=== PATIENT | female | born 1950 | race Caucasian/White ===

== ENCOUNTER → 2016-11-20 | Outpatient (CLI) | payer OTHER ==
--- NOTE | 2016-11-20 19:18 | DX ---
Lumbar spine 2 views Indication: Post fusion, 6-month follow up. Comparison: August 19, 2016. Findings: Posterior L4-L5 fusion instrumentation remaining unchanged. Alignment is normal. Rest of th e spine is unchanged. Impression: No changes since 6 months ago.
== END ==
LOC: EDSTATUS 12:30 → FIMAGING 18:27
DX: Z09 Encounter for follow-up examination after completed treatment for conditions other than malignant neoplasm (principal); Z98.1 Arthrodesis status

== ENCOUNTER → 2016-12-17 | Outpatient (CLI) | payer OTHER ==
[~2016-12-17] MED LIST: GADOBUTROL 10 ML VIAL IVP ONE
== END ==
LOC: FIMAGING 12:41
DX: M54.6 Pain in thoracic spine (principal); M40.204 Unspecified kyphosis, thoracic region; M51.14 Intervertebral disc disorders with radiculopathy, thoracic region; M48.06 Spinal stenosis, lumbar region; Z98.1 Arthrodesis status
CPT/HCPCS: 72148; 72157; A9585

== ENCOUNTER → 2017-02-08 | Outpatient (CLI) | payer OTHER | LOC: FIMAGING 12:50 | DX: Z12.31 Encounter for screening mammogram for malignant neoplasm of breast (principal); Z80.3 Family history of malignant neoplasm of breast | CPT/HCPCS: G0202 ==

== ENCOUNTER → 2017-05-11 | Outpatient (CLI) | payer OTHER | LOC: FIMAGING 11:32 | PROVIDERS: ATTEND Physician Assistant | DX: Z09 Encounter for follow-up examination after completed treatment for conditions other than malignant neoplasm (principal); Z98.1 Arthrodesis status ==

== ENCOUNTER → 2017-06-11 | Outpatient (CLI) | payer OTHER | LOC: FIMAGING 18:35 | PROVIDERS: ATTEND Nurse Practitioner | DX: M51.85 Other intervertebral disc disorders, thoracolumbar region (principal); M51.86 Other intervertebral disc disorders, lumbar region; Z98.1 Arthrodesis status | CPT/HCPCS: 72157; 72158; A9585 ==

== ENCOUNTER → 2017-06-27 | Outpatient (CLI) | payer OTHER | LOC: BMCIMAGING 15:19 | PROVIDERS: ATTEND Internal Medicine Rheumatology | DX: M16.12 Unilateral primary osteoarthritis, left hip (principal) | CPT/HCPCS: 86812-90 ==

== ENCOUNTER → 2017-07-04 | Outpatient (CLI) | payer OTHER | LOC: FIMAGING 18:05 | PROVIDERS: ATTEND Physical Medicine & Rehabilitation Neuromuscular Medicine | DX: M54.16 Radiculopathy, lumbar region (principal); Z98.1 Arthrodesis status ==

== ENCOUNTER → 2017-12-25 | Outpatient (CLI) | payer OTHER | LOC: BHFA 13:15 | PROVIDERS: ATTEND Internal Medicine Cardiovascular Disease | DX: R06.09 Other forms of dyspnea (principal) ==

== ENCOUNTER → 2018-01-04 | Outpatient (CLI) | payer OTHER | LOC: BHFA 16:00 | PROVIDERS: ATTEND Internal Medicine Cardiovascular Disease | DX: R00.2 Palpitations (principal); R06.02 Shortness of breath; I47.1 Supraventricular tachycardia ==

== ENCOUNTER → 2018-02-13 | Outpatient (CLI) | payer OTHER | LOC: FIMAGING 16:00 | PROVIDERS: ATTEND Family Medicine | DX: Z12.31 Encounter for screening mammogram for malignant neoplasm of breast (principal); Z80.3 Family history of malignant neoplasm of breast ==

== ENCOUNTER → 2018-05-28 | Outpatient (CLI) | payer OTHER | DX: Z13.820 Encounter for screening for osteoporosis (principal); M85.89 Other specified disorders of bone density and structure, multiple sites; M40.204 Unspecified kyphosis, thoracic region; Z78.0 Asymptomatic menopausal state; Z79.890 Hormone replacement therapy ==

== ENCOUNTER → 2018-12-10 | Outpatient (CLI) | payer OTHER | LOC: FLAB 14:52 | PROVIDERS: ATTEND Physician Assistant | DX: Z98.1 Arthrodesis status (principal) | CPT/HCPCS: 82607-90 ==

== ENCOUNTER → 2018-12-31 | Outpatient (CLI) | payer OTHER | LOC: FIMAGING 18:14 | PROVIDERS: ATTEND Physician Assistant | DX: M54.6 Pain in thoracic spine (principal); M54.16 Radiculopathy, lumbar region; M48.07 Spinal stenosis, lumbosacral region; M51.36 Other intervertebral disc degeneration, lumbar region; Z98.1 Arthrodesis status ==

== ENCOUNTER → 2019-02-27 | Outpatient (CLI) | payer OTHER | LOC: FIMAGING 14:33 | PROVIDERS: ATTEND Family Medicine | DX: Z12.31 Encounter for screening mammogram for malignant neoplasm of breast (principal); Z80.3 Family history of malignant neoplasm of breast ==

== ENCOUNTER 2019-04-06 15:07 | Emergency (ER) | payer OTHER ==
[2019-04-06] MEDS ORDERED: NS 1,000 ML IV ONE (15:27)
--- NOTE | 2019-04-06 15:30 | EDPHY ---
H & P Stated Complaint: dx uti hematuria/rx macrobid/yesterday now with glank pain/ chills body ache Time Seen by Provider: 04/06/19 15:18 HPI/ROS: CHIEF COMPLAINT: Diagnosed with UTI yesterday, chills, worsening dysuria, nausea HISTORY OF PRESENT ILLNESS: The patient was diagnosed with urinary tract infection yesterday with antecedent symptoms of frequency and dysuria. She was noted to have high blood and trace leuks on urine dipstick and was started on Macrobid. The patient tells me her symptoms have worsened today. She denies any flank pain. She denies fever but does report nausea and flu-like symptoms. The patient denies cough or congestion. She denies any acute back pain. She does have a history of chronic back pain from prior spinal surgery. Patient reports her symptoms are moderate in nature REVIEW OF SYSTEMS: A comprehensive 10 point review of systems is otherwise negative aside from elements mentioned in the history of present illness. Source: Patient Exam Limitations: No limitations - Personal History Current Tetanus Diphtheria and Acellular Pertussis (TDAP): Unsure - Medical/Surgical History Hx Asthma: No Hx Chronic Respiratory Disease: No Hx Diabetes: No Hx Cardiac Disease: Yes Hx Renal Disease: No Hx Cirrhosis: No Hx Alcoholism: No Hx HIV/AIDS: No Hx Splenectomy or Spleen Trauma: No Other PMH: SVT, head injury (2008), Neuroma, Hypothyroid - Social History Smoking Status: Never smoked - Physical Exam Exam: General Appearance: Alert, no distress Eyes: Pupils equal and round no pallor or injection ENT, Mouth: Mucous membranes moist Respiratory: There are no retractions, lungs are clear to auscultation Cardiovascular: Regular rate and rhythm Gastrointestinal: Minimal suprapubic tenderness, no CVA tenderness Neurological: 5/5 strength noted all 4 extremities Skin: Warm and dry, no rashes Musculoskeletal: Neck is supple nontender Extremities: symmetrical, full range of motion Constitutional: Initial Vital Signs Temperature (C) 36.9 C 04/06/19 15:13 Heart Rate 90 04/06/19 15:13 Respiratory Rate 18 04/06/19 15:13 Blood Pressure 120/68 04/06/19 15:13 O2 Sat (%) 93 04/06/19 15:13 O2 Delivery Mode Room Air Allergies/Adverse Reactions: aspirin Allergy (Intermediate, Verified 04/06/19 15:09) nausea doxycycline Allergy (Intermediate, Verified 04/06/19 15:09) colon fissures epinephrine Allergy (Intermediate, Verified 04/06/19 15:09) heart races zolpidem tartrate [From Ambien] Allergy (Intermediate, Verified 04/06/19 15:09) "made crazy"- ended up in hospital ciprofloxacin [From Cipro] Allergy (Verified 04/06/19 15:09) "felt like her head was going to fall off" diphenhydramine HCl [From Benadryl] Allergy (Verified 04/06/19 15:09) heart races oxycodone terephthalate [From Percodan] Allergy (Verified 04/06/19 15:09) convulsions tetracycline [Tetracycline] Allergy (Verified 04/06/19 15:09) colon fissures trazodone Allergy (Verified 04/06/19 15:09) "flat personality, became addicted" Home Medications: Medication Instructions Recorded Eszopiclone [Lunesta] 0.5 mg PO HS PRN 12/22/15 Herbals/Supplements -Info Only 1 ea PO DAILY 12/22/15 Testosterone. 1 mg TP TUTHSA@09 12/22/15 Thyroid [Lloyd Thyroid 60 MG (*)] 60 mg PO DAILY06 12/22/15 Estradiol [Climara 0.05 MG (*)] 0.05 mg TP MO@0900 04/11/16 Progesterone (Compounded) 25 mg PO DAILY 04/11/16 Estradiol [Vivelle-Dot 0.025MG (*)] 0.025 mg TD KUMAR 05/29/16 Estradiol [VAGIFEM] 25 mcg VG KUMAR@2100 06/01/16 Methocarbamol [Robaxin 750 mg (*)] 750 mg PO QID PRN #40 tab 06/01/16 Macrobid 04/06/19 Medical Decision Making - Diagnostics Imaging Results: Imaging Impressions Abdomen CT 04/06/19 15:57 Impression: 1. No evidence for diverticulosis or diverticulitis. 2. No CT evidence of appendicitis, abscess or bowel obstruction. 3. Transverse orientation of the cecum with the tip at the level of the umbilicus. 4. Mild bladder wall thickening. This is nonspecific but can be seen with cystitis.. Findings discussed with Ariel Burton M.D. at 16:58 hour, 04/06/2019. ED Course/Re-evaluation: Patient presents the ED with subjective fever, chills and nausea in the setting of a recent urinary tract infection diagnosis. The patient was diagnosed with a UTI yesterday by dipstick test which demonstrated large blood and trace leukocyte esterase. The patient was having some dysuria at that point time and was started on Macrobid. The patient felt worse today prompting her visit to the emergency department. She denies any cough or congestion. She denies additional complaints. She does complain of mild lower abdominal discomfort. Patient was noted to have minimal tenderness on exam. She had no clinical evidence of pyelonephritis. Urinalysis today demonstrates no pyuria or hematuria. Patient was noted to have mild leukocytosis. Given the uncertainty of her initial diagnosis I did obtain a CT scan of the abdomen pelvis to evaluate for other processes such as appendicitis or diverticulitis. CT scan of the abdomen pelvis demonstrates no evidence of obvious pathology. The patient received IV fluids in the emergency department. She is nontoxic well-appearing has a benign abdominal exam. At this point time I do feel she can be discharged home. Given the possibility of a partially treated urinary tract infection I have encouraged her to continue to her full course of Macrobid. Patient is advised to return to the emergency department for markedly worsening symptoms or other concerns. Patient should take Tylenol and ibuprofen as needed for symptom management. Differential Diagnosis: Differential diagnosis considered includes cystitis, pyelonephritis, viral enteritis, metabolic abnormality, appendicitis, diverticulitis - Data Points Laboratory Results: Laboratory Results 04/06/19 15:36 04/06/19 15:36 04/06/19 04/06/19 04/06/19 15:36 15:36 15:15 WBC 14.15 10^3/uL H 10^3/uL (3.80-9.50) RBC 4.47 10^6/uL 10^6/uL (4.18-5.33) Hgb 13.8 g/dL g/dL (12.6-16.3) Hct 41.0 % % (38.0-47.0) MCV 91.7 fL fL (81.5-99.8) MCH 30.9 pg pg (27.9-34.1) MCHC 33.7 g/dL g/dL (32.4-36.7) RDW 12.9 % % (11.5-15.2) Plt Count 290 10^3/uL 10^3/uL (150-400) MPV 8.6 fL L fL (8.7-11.7) Neut % (Auto) 94.1 % H % (39.3-74.2) Lymph % (Auto) 2.0 % L % (15.0-45.0) Cecil % (Auto) 3.1 % L % (4.5-13.0) Eos % (Auto) 0.1 % L % (0.6-7.6) Baso % (Auto) 0.2 % L % (0.3-1.7) Nucleat RBC Rel Count 0.0 % % (0.0-0.2) Absolute Neuts (auto) 13.32 10^3/uL H 10^3/uL (1.70-6.50) Absolute Lymphs (auto) 0.28 10^3/uL L 10^3/uL (1.00-3.00) Absolute Monos (auto) 0.44 10^3/uL 10^3/uL (0.30-0.80) Absolute Eos (auto) 0.01 10^3/uL L 10^3/uL (0.03-0.40) Absolute Basos (auto) 0.03 10^3/uL 10^3/uL (0.02-0.10) Absolute Nucleated RBC 0.00 10^3/uL 10^3/uL (0-0.01) Immature Gran % 0.5 % % (0.0-1.1) Immature Gran # 0.07 10^3/uL 10^3/uL (0.00-0.10) RBC/WBC/PLT Morphology TNP Platelet Estimate TNP Sodium 134 mEq/L L mEq/L (135-145) Potassium 3.9 mEq/L mEq/L (3.5-5.2) Chloride 102 mEq/L mEq/L (97-110) Carbon Dioxide 22 mEq/l mEq/l (22-31) Anion Gap 10 mEq/L mEq/L (6-14) BUN 16 mg/dL mg/dL (7-23) Creatinine 0.8 mg/dL mg/dL (0.6-1.0) Estimated GFR > 60 Glucose 118 mg/dL H mg/dL (70-100) Calcium 9.3 mg/dL mg/dL (8.5-10.4) Urine Color YELLOW Urine Appearance CLEAR Urine pH 7.0 (5.0-7.5) Ur Specific [place] 1.017 (1.002-1.030) Urine Protein NEGATIVE (NEGATIVE) Urine Ketones NEGATIVE (NEGATIVE) Urine Blood NEGATIVE (NEGATIVE) Urine Nitrate NEGATIVE (NEGATIVE) Urine Bilirubin NEGATIVE (NEGATIVE) Urine Urobilinogen NEGATIVE EU EU (0.2-1.0) Ur Leukocyte Esterase NEGATIVE (NEGATIVE) Urine Glucose NEGATIVE (NEGATIVE) Medications Given: Discontinued Medications Sodium Chloride (Ns) 1,000 mls @ 0 mls/hr IV EDNOW ONE; Wide Open PRN Reason: Protocol Stop: 04/06/19 15:28 Last Admin: 04/06/19 15:32 Dose: 1,000 mls Departure - Departure Disposition: Home, Routine, Self-Care Clinical Impression: Chills, Fatigue Condition: Good Instructions: Urinary Tract Infection in Women (DC) Additional Instructions: 1. Your CT scan demonstrates no evidence of obvious pathology. Here urinalysis today demonstrates no evidence of infection however because you have been treated with antibiotics you may have a partially treated infection which is not apparent today. 2. I do recommend Tylenol and ibuprofen as needed for symptoms. 3. Zofran as needed for nausea. 4. I do recommend completing the course of antibiotics you have been prescribed. 5. Follow up with your primary care provider for recheck this week for any ongoing mild symptoms. 6. Return to the ED immediately for increasing pain, fever, vomiting or other concerns. Referrals: Tara Holt [Primary Care Provider] - As per Instructions
[2019-04-06 15:53] LABS: PLATELET COUNT 290 10^3/uL (150-400)
[2019-04-06] MEDS ORDERED: IOPAMIDOL (ISOVUE-300) 100 ML BTL ONE (16:02)
[2019-04-06 17:21] VITALS: BP 131/81
== END 2019-04-06 17:52 | disposition home or self-care (01) ==
DX: N39.0 Urinary tract infection, site not specified (principal); E03.9 Hypothyroidism, unspecified
CPT/HCPCS: 74177; 96360; 99285; Q9967